=== PATIENT | male | born 1965 | race African-American/Black ===

== ENCOUNTER → 2017-12-01 | Outpatient (CLI) | payer BC ==
[2017-12-01 16:42] LABS: APPEARANCE CLEAR/COLORLESS; CSF TUBE NUMBER TUBE #4
[2017-12-01 16:43] LABS: CSF PROTEIN 56 mg/dL (15-45); RED CELL COUNT 106 /MM^3 (0-1); WHITE CELL COUNT 1 /MM^3 (0-5)
[2017-12-01 16:48] LABS: GLUCOSE, CSF 57 mg/dL (40-80)
[2017-12-01 16:49] LABS: CSF EOSINOPHILS ND % (0-25); MONONUCLEAR WBC'S ND % (50-90); POLYNUCLEAR WBC'S ND % (0-3)
[2017-12-01 17:13] LABS: APPEARANCE (RECHECK) PINK; CSF TUBE NUMBER (RECHECK) TUBE #1
[2017-12-01 17:14] LABS: RED CELL COUNT (RECHECK) 1866 /MM^3 (0-1)
[2017-12-02 16:17] LABS: HSV CSF Spec Source CSF (())
[2017-12-02 22:33] LABS: VARICELLA-ZOSTER VIRUS PCR+ <500 (<500)
[2017-12-05 13:33] LABS: Synthesis Rate IgG, CSF -4.5 mg/24hr
[2017-12-05 13:34] LABS: Albumin, CSF 24.3 mg/dL; IgG Index, CSF 0.46 index
[2017-12-05 13:35] LABS: IgG, CSF 3.9 mg/dL; IgG, Serum 1390 mg/dL
== END | disposition home or self-care (01) ==
LOC: RAD 13:54
PROVIDERS: Physician Assistant
PROC: 009U3ZZ Drainage of Spinal Canal, Percutaneous Approach (ICD-10-PCS; principal; 2017-12-01)
DX: G37.3 Acute transverse myelitis in demyelinating disease of central nervous system (principal)
CPT/HCPCS: 62270; 77003; 82040 90; 82042 90; 82164 90; 82784 90; 82945; 83916 90; 84157; 86592 90; 86617 90; 86618 90; 87070; 87205; 87529 90; 87799 90; 89051